=== PATIENT | male | born 1940 | race Caucasian/White ===

== ENCOUNTER 2019-03-05 13:55 | Outpatient (CLI) | payer MEDICARE, OTHER ==
[2019-03-05 14:26] LABS: INR 2.8 (0.8-1.2); PT - PROTHROMBIN TIME 31.1 secs (9.9-12.6)
== END 2019-03-05 13:56 | disposition home or self-care (01) ==
LOC: LAB 13:55
PROVIDERS: ATTEND Internal Medicine
DX: I48.91 Unspecified atrial fibrillation (principal)
CPT/HCPCS: 36415; 85610

== ENCOUNTER 2019-03-13 14:28 | Outpatient (CLI) | payer MEDICARE, OTHER ==
[2019-03-13 15:14] LABS: INR 3.5 (0.8-1.2); PT - PROTHROMBIN TIME 38.2 secs (9.9-12.6)
== END 2019-03-13 14:29 | disposition home or self-care (01) ==
LOC: LAB 14:28
PROVIDERS: ATTEND Internal Medicine
DX: I48.91 Unspecified atrial fibrillation (principal)
CPT/HCPCS: 36415; 85610